=== PATIENT | female | born 1950 | race Caucasian/White ===

== ENCOUNTER 2016-12-16 01:11 | Emergency (ER) | payer OTHER ==
[~2016-12-16] VITALS: Ht 162.6 cm; Wt 80.5 kg
[2016-12-16 01:17] VITALS: Ht 162.6 cm; Wt 80.5 kg
[2016-12-16] MEDS ORDERED: SOD CHLORIDE 0.9% 500 ML IV STA (01:56)
[2016-12-16] MEDS ORDERED: ONDANSETRON 4 MG INJ IV STA (02:15)
[2016-12-16] MEDS ORDERED: morphine 4 MG/ML VIAL IV STA (02:15)
--- NOTE | 2016-12-16 02:33 | RADRPT ---
PROCEDURE: XR Chest. CLINICAL INDICATION: Pain. TECHNIQUE: Single frontal chest x-ray. COMPARISON: None. FINDINGS: The cardiomediastinal silhouette is unremarkable. There are atherosclerotic calcifications of the ao rtic knob. There is no congestive heart failure.. No focal infiltrate is seen. There is no pleural effusion. There is no pneumothorax. The osseous structures are unremarkable. IMPRESSION: 1. No active disease. RPTAT: HMVK .Deepak Xiong MD, Date Time Electronically viewed and signed by .Deepak Xiong MD, on 12/16/2016 02:33 .K/
[2016-12-16 02:43] LABS: ADD SCAN DIFF NO
[2016-12-16 02:45] LABS: BASOPHILS % 0.1 % (0.0-2.0); EOSINOPHILS # 0.1 10^3/ul (0.0-0.5); EOSINOPHILS % 1.4 % (0.0-7.0); HEMOGLOBIN 12.3 g/dl (12.0-16.0); LYMPHOCYTES # 1.5 10^3/ul (0.8-2.9); LYMPHOCYTES % 18.1 % (15.0-51.0); MEAN CORPUSCULAR HEMOGLOBIN 27.5 pg (29.0-33.0); MEAN CORPUSCULAR HGB CONC 33.2 g/dl (32.0-37.0); MEAN CORPUSCULAR VOLUME 82.6 fl (82.0-101.0); MEAN PLATELET VOLUME 10.1 fl (7.4-10.4); MONOCYTE # 0.7 10^3/ul (0.3-0.9); MONOCYTES % 8.5 % (0.0-11.0); NEUTROPHILS % 71.7 % (39.0-77.0); PLATELET COUNT 209 10^3/UL (140-415); RED BLOOD COUNT 4.48 10^6/ul (4.20-5.40); RED CELL DISTRIBUTION WIDTH 13.9 % (11.5-14.5); WHITE BLOOD COUNT 8.4 10^3/ul (4.8-10.8)
[2016-12-16 03:06] LABS: ALBUMIN 3.6 g/dl (3.3-4.9); CHLORIDE 104 mmol/L (97-110); POTASSIUM 4.1 mmol/L (3.5-5.1); SODIUM 139 mmol/L (135-144)
[2016-12-16 03:08] LABS: CREATININE 0.49 mg/dl (0.44-1.00)
[2016-12-16 03:09] LABS: ALANINE AMINOTRANSFERASE 47 IU/L (13-69); ALBUMIN/GLOBULIN RATIO 1.12; ALKALINE PHOSPHATASE 80 IU/L (42-121); ANION GAP 17 (8-16); ASPARTATE AMINO TRANSFERASE 41 IU/L (15-46); BILIRUBIN,INDIRECT 0.2 mg/dl (0-1.1); BILIRUBIN,TOTAL 0.2 mg/dl (0.2-1.3); BLOOD UREA NITROGEN 13 mg/dl (7-20); CALCIUM 8.2 mg/dl (8.4-10.2); CARBON DIOXIDE 22 mmol/L (21-31); GLUCOSE 164 mg/dl (70-220); TOTAL PROTEIN 6.8 g/dl (6.1-8.1)
--- NOTE | 2016-12-16 03:21 | ERD ---
ER Documentation Chief Complaint Date/Time DATE: 12/16/16 TIME: 03:19 Chief Complaint fever/abd pain/headahce/body aches x 3 days HPI This is a 66-year-old female comes in with a headache body aches cough and fever. Denies any nausea vomiting. Denies any other current complaints. Symptoms been on for 24-48 hours. No other current complaints. ROS All systems reviewed and are negative except as per history of present illness. Allergies Allergies: Coded Allergies: No Known Drug Allergies (Verified Allergy, Unknown, 12/16/16) PMhx/Soc Medical and Surgical Hx: pt denies Surgical Hx Hx Miscellaneous Medical Probl: Yes (dm) Hx Alcohol Use: No Hx Substance Use: No Hx Tobacco Use: No Smoking Status: Former smoker Physical Exam Vitals Vital Signs Date Time Temp Pulse Resp B/P Pulse Ox O2 Delivery O2 Flow Rate FiO2 12/16/16 01:17 99.2 96 20 132/79 98 Physical Exam Const: [] Head: Atraumatic Eyes: Normal Conjunctiva ENT: Normal External Ears, Nose and Mouth. Neck: Full range of motion..~ No meningismus. Resp: Clear to auscultation bilaterally Cardio: Regular rate and rhythm, no murmurs Abd: Soft, non tender, non distended. Normal bowel sounds Skin: No petechiae or rashes Back: No midline or flank tenderness Ext: No cyanosis, or edema Neur: Awake and alert Psych: Normal Mood and Affect Result Diagram: 12/16/16 0205 12/16/16 0205 Results 24 hrs Laboratory Tests Test 12/16/16 02:05 White Blood Count 8.410^3/ul Red Blood Count 4.4810^6/ul Hemoglobin 12.3g/dl Hematocrit 37.0% Mean Corpuscular Volume 82.6fl Mean Corpuscular Hemoglobin 27.5pg Mean Corpuscular Hemoglobin Concent 33.2g/dl Red Cell Distribution Width 13.9% Platelet Count 47999^3/UL Mean Platelet Volume 10.1fl Neutrophils % 71.7% Lymphocytes % 18.1% Monocytes % 8.5% Eosinophils % 1.4% Basophils % 0.1% Nucleated Red Blood Cells % 0.0/100WBC Neutrophils # 6.010^3/ul Lymphocytes # 1.510^3/ul Monocytes # 0.710^3/ul Eosinophils # 0.110^3/ul Basophils # 0.010^3/ul Nucleated Red Blood Cells # 0.010^3/ul Sodium Level 139mmol/L Potassium Level 4.1mmol/L Chloride Level 104mmol/L Carbon Dioxide Level 22mmol/L Anion Gap 17 Blood Urea Nitrogen 13mg/dl Creatinine 0.49mg/dl Glucose Level 164mg/dl Lactic Acid Level 1.4mmol/L Calcium Level 8.2mg/dl Total Bilirubin 0.2mg/dl Direct Bilirubin 0.00mg/dl Indirect Bilirubin 0.2mg/dl Aspartate Amino Transf (AST/SGOT) 41IU/L Alanine Aminotransferase (ALT/SGPT) 47IU/L Alkaline Phosphatase 80IU/L Troponin I Pending Total Protein 6.8g/dl Albumin 3.6g/dl Globulin 3.20g/dl Albumin/Globulin Ratio 1.12 Lipase 233U/L Current Medications Medications (Trade) Dose Ordered Sig/John Route PRN Reason Start Time Stop Time Status Last Admin Dose Admin Sodium Chloride (NS) 500 ml @ 500 mls/hr Q1H STAT IV 12/16/16 01:56 12/16/16 02:55 DC 12/16/16 02:24 Morphine Sulfate (morphine) 4 mg ONCE STAT IV 12/16/16 02:15 12/16/16 02:18 DC 12/16/16 02:24 Ondansetron HCl (Zofran Inj) 4 mg ONCE STAT IV 12/16/16 02:15 12/16/16 02:18 DC 12/16/16 02:24 Procedures/MDM EKG: Rate/Rhythm: [Normal Sinus Rhythm] QRS, ST, T-waves: [No changes consistent w/ acute ischemia] Impression: [No evidence of ischemia or arrhythmia] Chest X-ray 1V Interpreted by me: Soft Tissue: No acute abnormalities Bones: No acute abnormalities Mediastinum/Cardiac Silhouette/Lungs: [No acute abnormalities] Medical decision makin year female with a history of viral syndrome. At this point clinically stable for discharge home with prednisone, Motrin. Follow -up with PMD tomorrow. Return for worsening symptoms. Departure Diagnosis: Primary Impression: Viral syndrome Condition: Stable STANLEY GARY December 16, 2016 03:21
[2016-12-16] MEDS ORDERED: IBUP-1542 PO (03:22)
[2016-12-16] MEDS ORDERED: PRED20TA PO (03:22)
[2016-12-16] MEDS ORDERED: ALBU18HF INHALATION (03:26)
[2016-12-16 03:43] LABS: TROPONIN-I < 0.012 ng/ml (0.00-0.12)
[2016-12-16 04:18] LABS: INR 0.91; PROTIME 12.2 Sec (12.2-14.2)
[2016-12-16 04:19] LABS: PARTIAL THROMBOPLASTIN TIME 32.9 Sec (25.0-35.0)
[2016-12-16 04:24] VITALS: BP 116/59; PULSE 78; RESP 22; TEMP 99
== END 2016-12-16 04:33 | disposition home or self-care (01) ==
LOC: E/R 01:11
DX: B34.9 Viral infection, unspecified (principal); E11.9 Type 2 diabetes mellitus without complications; R07.9 Chest pain, unspecified; Z87.891 Personal history of nicotine dependence
CPT/HCPCS: 36415; 71010; 80053; 83605; 83690; 84484; 85025; 85610; 85730; 87040; 93005; 96361; 96374; 96375; J2270; J2405; J7040; Z7502; Z7610

== ENCOUNTER 2018-08-13 19:28 | Inpatient (IN) | payer OTHER ==
[~2018-08-13] VITALS: Ht 160 cm; Wt 70.5 kg
[~2018-08-13 19:28] MED LIST: ALBU18HF INHALATION; IBUP-1542 PO; PRED20TA PO
[2018-08-13] MEDS ORDERED: SOD CHLORIDE 0.9% 1,000 ML IV ONE (21:00)
[2018-08-13] MEDS ORDERED: CEFTRIAXONE 1 GM/50 ML (PMX) 50 ML IVPB ONE (21:00)
[2018-08-13] MEDS ORDERED: INSULIN REGULAR, HUMAN 100 UNIT/1 ML 3ML VIAL SC ONE (21:00)
--- NOTE | 2018-08-13 21:10 | ERD ---
ER Documentation Chief Complaint Chief Complaint bilateral flank pain x 1 week. HPI 67-year-old female presents the emergency department with her family for evaluation of bilateral flank pain for 1 week. Patient and family state that over the last week, she has had nonspecific fevers and chills with bilateral flank pain. She reports no dysuria or hematuria. She reports nausea with nonbilious, nonbloody emesis. Patient reports no diarrhea. ROS All systems reviewed and are negative except as per history of present illness. Medications Home Meds Active Scripts Albuterol Sulfate* (Ventolin HFA*) 18 Gm Hfa.aer.ad, 2 PUFF INHALATION Q4H, #1 INHALER Prov:STANLEY GARY S. 12/16/16 Prednisone* (Prednisone*) 20 Mg Tab, 40 MG PO DAILY for 4 Days, TAB Prov:STANLEY GARY 12/16/16 Ibuprofen* (Motrin*) 600 Mg Tab, 600 MG PO Q6, #30 TAB Prov:STANLEY GARY. 12/16/16 Allergies Allergies: Coded Allergies: No Known Drug Allergies (Verified Allergy, Unknown, 12/16/16) PMhx/Soc History of Surgery: No Hx Respiratory Disorders: No Hx Cardiac Disorders: No Hx Psychiatric Problems: No Hx Miscellaneous Medical Probl: Yes (previous UTI) Hx Alcohol Use: No Hx Substance Use: No Hx Tobacco Use: No Smoking Status: Never smoker FmHx Noncontributory for chief complaint Physical Exam Vitals Vital Signs Date Temp Pulse Resp B/P (MAP) Pulse Ox O2 O2 Flow FiO2 Time Delivery Rate 08/13/18 97.9 88 18 133/63 97 19:34 (86) Physical Exam GENERAL: The patient is well developed and appropriate for usual state of health in no apparent distress HEENT: Pupils equal, round, and reactive to light. EOMI. There is no scleral icterus. NECK: C-spine is soft and supple, there is no meningismus. There is no cervical lymphadenopathy. LUNGS: Clear to auscultation bilaterally. There are no rales, wheezes or rhonchi. HEART: Regular rate and rhythm, no murmurs, clicks, rubs or gallops. ABDOMEN: Soft, non-tender, non-distended. There are bowel sounds in all four quadrants. No rebound or guarding. Bilateral CVA tenderness EXTREMITIES: There is no peripheral cyanosis or edema. No focal swelling or erythema. NEURO: The patient moves all four extremities with 5/5 strength. Cranial nerves II - XII are intact. Normal gait. Alert and oriented SKIN: There is no apparent rash or petechiae. HEME/LYMPHATIC: There is no evidence of excessive bruising or lymphedema. PSYCHIATRIC: The patient does not appear anxious or depressed. Result Diagram: 08/13/18200308/13/18 2004 Results 24 hrs Laboratory Tests Test 08/13/18 20:04 White Blood Count 9.6 10^3/ul Red Blood Count 4.54 10^6/ul Hemoglobin 12.4 g/dl Hematocrit 37.6 % Mean Corpuscular Volume 82.8 fl Mean Corpuscular Hemoglobin 27.3 pg Mean Corpuscular Hemoglobin Concent 33.0 g/dl Red Cell Distribution Width 13.9 % Platelet Count 264 10^3/UL Mean Platelet Volume 9.7 fl Immature Granulocytes % 0.300 % Neutrophils % 75.2 % Lymphocytes % 18.8 % Monocytes % 4.3 % Eosinophils % 1.0 % Basophils % 0.4 % Nucleated Red Blood Cells % 0.0 /100WBC Immature Granulocytes # 0.030 10^3/ul Neutrophils # 7.2 10^3/ul Lymphocytes # 1.8 10^3/ul Monocytes # 0.4 10^3/ul Eosinophils # 0.1 10^3/ul Basophils # 0.0 10^3/ul Nucleated Red Blood Cells # 0.0 10^3/ul Urine Color YELLOW Urine Clarity CLEAR Urine pH 7.0 Urine Specific [place] 1.021 Urine Ketones NEGATIVE mg/dL Urine Nitrite NEGATIVE mg/dL Urine Bilirubin NEGATIVE mg/dL Urine Urobilinogen NEGATIVE mg/dL Urine Leukocyte Esterase 1+ Yo[place]/ul Urine Microscopic RBC 2 /HPF Urine Microscopic WBC 41 /HPF Urine Hemoglobin NEGATIVE mg/dL Urine Glucose 3+ mg/dL Urine Total Protein NEGATIVE mg/dl Sodium Level 132 mmol/L Potassium Level 4.4 mmol/L Chloride Level 100 mmol/L Carbon Dioxide Level 27 mmol/L Anion Gap 5 Blood Urea Nitrogen 13 mg/dl Creatinine 0.54 mg/dl Est Glomerular Filtrat Rate mL/min > 60 mL/min Glucose Level 473 mg/dl Calcium Level 9.5 mg/dl Total Bilirubin 0.2 mg/dl Direct Bilirubin 0.00 mg/dl Indirect Bilirubin 0.2 mg/dl Aspartate Amino Transf (AST/SGOT) 75 IU/L Alanine Aminotransferase (ALT/SGPT) 77 IU/L Alkaline Phosphatase 284 IU/L Total Protein 6.9 g/dl Albumin 3.7 g/dl Globulin 3.20 g/dl Albumin/Globulin Ratio 1.15 Lipase 121 U/L Current Medications Medications Dose Sig/John Start Time Status Last (Trade) Ordered Route PRN Stop Time Admin Dose Reason Admin Sodium 1,000 ml @ Q1H ONCE 08/13/18 Chloride 1,000 mls/hr IV 21:00 08/13/18 21:59 Ceftriaxone 50 ml @ ONCE ONCE 08/13/18 Sodium 100 mls/hr IVPB 21:00 08/13/18 21:29 Insulin 4 unit ONCE ONCE 08/13/18 DC Human SC 21:00 08/13/18 Regular 21:01 (Humulin R) Procedures/MDM Patient was taken to a room, seen and evaluated. Comfort measures were initiated. Diagnostic tests were ordered and reviewed. CONSULTATION: Hospitalist was notified for admission REEVALUATION: 2100: Diagnostic tests were appreciated and arrangements were made for admission to the hospital. In response the patient's tests, patient received fluids, antibiotics, insulin MEDICAL DECISION MAKIN-year-old female presents the emergency department with a pyelonephritis comp located by severe hyperglycemia and uncontrolled diabetes putting her at high risk. She does not appear to be septic at this time but will require admission to the hospital for fluids, antibiotics and sugar control. Departure Diagnosis: Primary Impression: Pyelonephritis Additional Impression: Diabetes mellitus with hyperglycemia Condition: EDUARDO Francisco Aug 13, 2018 21:10
[2018-08-13] MEDS ORDERED: METF500T24 PO (21:13)
[2018-08-13] MEDS ORDERED: LISI-313 PO (21:13)
[2018-08-13] MEDS ORDERED: ATOR20TA38 PO (21:13)
[2018-08-13] MEDS ORDERED: GABA400C14 PO (21:14)
[2018-08-13] MEDS ORDERED: OMEP20CA16 PO (21:14)
[2018-08-13] MEDS ORDERED: INSU100I33 SC (21:15)
[2018-08-13] MEDS ORDERED: HYDROmorphONE 1 MG/ML SYG IV STA (22:23)
[2018-08-13] MEDS ORDERED: ONDANSETRON 4 MG INJ IV STA (22:23)
[2018-08-13 23:29] VITALS: BP 136/79; PULSE 102; RESP 17
--- NOTE | 2018-08-13 23:48 | HP ---
Date/Time of Note Date/Time of Note DATE: 08/13/18 TIME: 23:48 Assessment/Plan VTE Prophylaxis Pharmacological prophylaxis: heparin Lines/Catheters IV Catheter Type (from Nrsg): Saline Lock Assessment/Plan Hospital Course Assessment/Plan 1. Sepsis, as evidenced by fever and tachycardia, secondary to UTI, with possible pyelonephritis -IV antibiotic, IV fluid -Obtain CT abdomen/pelvis to eval for kidney/ureteral stones -Follow-up blood culture and urine culture results 2. Insulin-dependent type 2 diabetes with hyperglycemia: No sign of DKA -Check A1c. Adjust insulin as needed 3. Hypertension: BP within goal. Continue home meds 4. Abnormal LFTs: will follow-up the CT abdomen/pelvis (see #1) Hold Lipitor for now Hep panel 5. History of asthma: No sign of acute exacerbation Result Diagram: 08/13/18200308/13/182003 Results 24hrs Laboratory Tests Test 08/13/18 20:04 White Blood Count 9.6 Red Blood Count 4.54 Hemoglobin 12.4 Hematocrit 37.6 Mean Corpuscular Volume 82.8 Mean Corpuscular Hemoglobin 27.3 L Mean Corpuscular Hemoglobin Concent 33.0 Red Cell Distribution Width 13.9 Platelet Count 264 # Mean Platelet Volume 9.7 Immature Granulocytes % 0.300 Neutrophils % 75.2 Lymphocytes % 18.8 Monocytes % 4.3 Eosinophils % 1.0 Basophils % 0.4 Nucleated Red Blood Cells % 0.0 Immature Granulocytes # 0.030 Neutrophils # 7.2 Lymphocytes # 1.8 Monocytes # 0.4 Eosinophils # 0.1 Basophils # 0.0 Nucleated Red Blood Cells # 0.0 Urine Color YELLOW Urine Clarity CLEAR Urine pH 7.0 Urine Specific [place] 1.021 Urine Ketones NEGATIVE Urine Nitrite NEGATIVE Urine Bilirubin NEGATIVE Urine Urobilinogen NEGATIVE Urine Leukocyte Esterase 1+ H Urine Microscopic RBC 2 Urine Microscopic WBC 41 H Urine Hemoglobin NEGATIVE Urine Glucose 3+ H Urine Total Protein NEGATIVE Sodium Level 132 L Potassium Level 4.4 Chloride Level 100 Carbon Dioxide Level 27 Anion Gap 5 Blood Urea Nitrogen 13 Creatinine 0.54 Est Glomerular Filtrat Rate mL/min > 60 Glucose Level 473 *H Calcium Level 9.5 Total Bilirubin 0.2 Direct Bilirubin 0.00 Indirect Bilirubin 0.2 Aspartate Amino Transf (AST/SGOT) 75 H Alanine Aminotransferase (ALT/SGPT) 77 H Alkaline Phosphatase 284 H Total Protein 6.9 Albumin 3.7 Globulin 3.20 Albumin/Globulin Ratio 1.15 Lipase 121 HPI/ROS Admit Date/Time Admit Date/Time Aug 13, 2018 at 21:11 Hx of Present Illness This is a 67-year-old female with a history of hypertension, type 2 diabetes (insulin-dependent), asthma who presented to ER complaining of right flank pain x 3 days. In the ER, temp was as high as 100.4. Initial WBC less than 10. UA consistent with UTI. Initial blood glucose 473 without any sign of DKA. PMH/Family/Social Past Medical History Medical History: other (See HPI) Medications Current Medications IV Flush (NS 3 ml) 3 ml PER PROTOCOL IV ; Start 08/14/18 at 00:00; Status UNV Ondansetron HCl (Zofran Inj) 4 mg Q6H PRN IV NAUSEA AND/OR VOMITING; Start at 00:00; Status UNV Acetaminophen (Tylenol Tab) 650 mg Q6H PRN PO PAIN LEVEL 1-3 OR FEVER; Start 08/14/18 at 00:00; Status UNV Acetaminophen/ Hydrocodone Bitart ([place] (5/325)) 1 tab Q6H PRN PO MODERATE PAIN LEVEL 4-6; Start 08/14/18 at 00:00; Status UNV Acetaminophen/ Hydrocodone Bitart ([place] (5/325)) 2 tab Q6H PRN PO SEVERE PAIN LEVEL 7-10; Start 08/14/18 at 00:00; Status UNV Enoxaparin Sodium (Lovenox) 40 mg DAILY SC ; Start 08/14/18 at 09:00; Status UNV Albuterol/ Ipratropium (Duoneb) 3 ml Q2H RESP THERAPY PRN HHN SHORTNESS OF BREATH; Start 08/14/18 at 00:00; Status UNV Coded Allergies: No Known Drug Allergies (Verified Allergy, Unknown, 08/13/18) Past Surgical History Past Surgical Hx: other (See HPI) Family History Significant Family History: no pertinent family hx Social History Alcohol Use: none Smoking Status: Never smoker Drug Use: none Exam/Review of Systems Vital Signs Vitals Vital Signs Date Temp Pulse Resp B/P (MAP) Pulse Ox O2 O2 Flow FiO2 Time Delivery Rate 08/13/18 100.4 102 17 136/79 96 23:29 (98) 08/13/18 Room Air 22:57 Exam Constitutional: alert, oriented, well developed Head: normocephalic, atraumatic Eyes: EOMI, PERRL Respiratory: clear to auscultation, normal air movement Cardiovascular: other (Tachycardic regular rhythm) Gastrointestinal: tender (right flank slightly tender) Extremities: normal pulses STANLEY PINA MD Aug 13, 2018 23:48
[2018-08-14] MEDS ORDERED: NACL 0.9% 3 ML SYG IV SCH
[2018-08-14] MEDS ORDERED: ALBUTEROL/IPRATROPIUM (NEB) 3 ML AMP HHN PRN
[2018-08-14] MEDS ORDERED: ONDANSETRON 4 MG INJ IV PRN
[2018-08-14] MEDS ORDERED: ACETAMINOPHEN 325 MG TAB PO PRN
[2018-08-14] MEDS ORDERED: HYDROCODONE/APAP (5/325) TAB PO PRN
[2018-08-14 00:29] VITALS: Ht 160 cm; Wt 70.5 kg
[2018-08-14] MEDS ORDERED: GLUCAGON 1 MG INJ IM PRN (00:30)
[2018-08-14] MEDS ORDERED: GLUCOSE GEL 15 GRAM TUBE PO PRN ×2 (00:30)
[2018-08-14] MEDS ORDERED: DEXTROSE 50% 50 ML SYRINGE IV PRN ×2 (00:30)
[2018-08-14] MEDS ORDERED: GLUCOSE GEL 15 GRAM TUBE BUCCAL PRN (00:30)
[2018-08-14] MEDS: INSULIN GLARGINE [LANtus] 3 ML PEN SC SCH ×2 (01:06→21:37)
[2018-08-14] MEDS: HYDROCODONE/APAP (5/325) TAB PO PRN ×2 (01:15→20:49)
[2018-08-14] MEDS: ACCU-CHEK XX SCH (01:51)
[2018-08-14] MEDS ORDERED: INSULIN ASPART [NOVOLOG] 3 ML PEN SC ONE (02:00)
[2018-08-14 02:10] VITALS: BP 107/55; PULSE 97; RESP 18
[2018-08-14] MEDS: metFORMIN 500 MG TAB PO SCH ×2 (08:01→17:33)
[2018-08-14] MEDS: INSULIN ASPART [NOVOLOG] 3 ML PEN SC SCH ×5 (08:04→20:43)
[2018-08-14] MEDS: GABAPENTIN 400 MG CAP PO SCH ×3 (08:05→20:44)
[2018-08-14] MEDS: ENOXAPARIN 40 MG/0.4 ML SYG SC SCH (08:05)
[2018-08-14 08:07] VITALS: BP 101/51; PULSE 77; RESP 18
[2018-08-14] MEDS: LISINOPRIL 5 MG TAB PO SCH (08:09)
[2018-08-14 14:45] VITALS: BP 89/53; PULSE 63; RESP 18
--- NOTE | 2018-08-14 16:27 | PN ---
Date/Time of Note Date/Time of Note DATE: 08/14/18 TIME: 16:24 Assessment/Plan VTE Prophylaxis Risk score (from Ns)>0 risk: 3 SCD applied (from Ns): No SCD contraindicated: other Pharmacological prophylaxis: LMWH Lines/Catheters IV [facility]from [facility] Saline Lock Assessment/Plan Hospital Course S: Patient had no fevers overnight. Having some low blood pressure today however. O: VS - see below: PE: GENERAL: Lying in bed, no acute distress HEENT: Pupils equal, round, and reactive to light. EOMI. There is no scleral icterus. NECK: Supple LUNGS: Clear to auscultation bilaterally. There are no rales, wheezes or rhonchi. HEART: Regular rate and rhythm, no murmurs, clicks, rubs or gallops. ABDOMEN: Soft, non-tender, non-distended. There are bowel sounds in all four quadrants. No rebound or guarding. + Bilateral CVA tenderness EXTREMITIES: No lower extremity edema bilaterally NEURO: No focal deficits Assessment/Plan: 67-year-old female who presents with: 1. Sepsis- as evidenced by fever and tachycardia, secondary to UTI, with possible pyelonephritis. Fevers are subsiding now. Urine culture shows preliminary greater than 100,000 gram-negative rods -Continue IV antibiotic, IV fluid -Results noted of CT abdomen/pelvis to eval for kidney/ureteral stones -Follow-up final results of blood culture and urine culture 2. Insulin-dependent type 2 diabetes with hyperglycemia: Sugars improved since admission but still in the high 100 to low 200 range. A1c was 13.8. -Continue metformin, add aspart with meals, continue Lantus -Continue sliding scale 3. Hypertension: BP within goal. -Continue home meds 4. History of asthma: No sign of acute exacerbation -Monitor, DuoNeb's as needed Result Diagram: 08/14/18 0508/14/1829 Results 24hrs Laboratory Tests Test 08/13/18 20:04 08/14/18 01:04 08/14/18 01:47 08/14/18 05:29 White Blood Count 9.6 10.9 H Red Blood Count 4.54 4.20 Hemoglobin 12.4 11.7 L Hematocrit 37.6 34.8 L Mean Corpuscular Volume 82.8 82.9 Mean Corpuscular 27.3 L 27.9 L Hemoglobin Mean Corpuscular 33.0 33.6 Hemoglobin Concent Red Cell Distribution 13.9 14.2 Width Platelet Count 264 # 241 Mean Platelet Volume 9.7 9.8 Immature Granulocytes % 0.300 0.400 Neutrophils % 75.2 65.4 Lymphocytes % 18.8 23.2 Monocytes % 4.3 9.8 Eosinophils % 1.0 0.9 Basophils % 0.4 0.3 Nucleated Red Blood 0.0 0.0 Cells % Immature Granulocytes # 0.030 0.040 H Neutrophils # 7.2 7.1 Lymphocytes # 1.8 2.5 Monocytes # 0.4 1.1 H Eosinophils # 0.1 0.1 Basophils # 0.0 0.0 Nucleated Red Blood 0.0 0.0 Cells # Urine Color YELLOW Urine Clarity CLEAR Urine pH 7.0 Urine Specific [place] 1.021 Urine Ketones NEGATIVE Urine Nitrite NEGATIVE Urine Bilirubin NEGATIVE Urine Urobilinogen NEGATIVE Urine Leukocyte Esterase 1+ H Urine Microscopic RBC 2 Urine Microscopic WBC 41 H Urine Hemoglobin NEGATIVE Urine Glucose 3+ H Urine Total Protein NEGATIVE Sodium Level 132 L 140 Potassium Level 4.4 4.1 Chloride Level 100 101 Carbon Dioxide Level 27 32 H Anion Gap 5 7 Blood Urea Nitrogen 13 11 Creatinine 0.54 0.57 Est Glomerular Filtrat > 60 > 60 Rate mL/min Glucose Level 473 *H 195 # Calcium Level 9.5 9.1 Total Bilirubin 0.2 0.3 Direct Bilirubin 0.00 0.00 Indirect Bilirubin 0.2 0.3 Aspartate Amino 75 H 41 Transf (AST/SGOT) Alanine 77 H 58 Aminotransferase (ALT/SG PT) Alkaline Phosphatase 284 H 195 H Total Protein 6.9 6.5 Albumin 3.7 3.3 Globulin 3.20 3.20 Albumin/Globulin Ratio 1.15 1.03 Lipase 121 Bedside Glucose 304 H 317 H Hemoglobin A1c 13.8 H Phosphorus Level 4.8 Magnesium Level 1.7 Test 08/14/18 07:59 08/14/18 12:25 Bedside Glucose 220 158 Exam/Review of Systems Vital Signs Vitals Vital Signs Date Temp Pulse Resp B/P (MAP) Pulse Ox O2 O2 Flow FiO2 Time Delivery Rate 08/14/18 97.3 63 18 89/53 (65) 92 14:45 08/13/18 Room Air 22:57 Medications Medications Current Medications IV Flush (NS 3 ml) 3 ml PER PROTOCOL IV ; Start 08/14/18 at 00:00 Ondansetron HCl (Zofran Inj) 4 mg Q6H PRN IV NAUSEA AND/OR VOMITING; Start 08/14/18 at 00:00 Acetaminophen (Tylenol Tab) 650 mg Q6H PRN PO PAIN LEVEL 1-3 OR FEVER Last administered on 08/14/18 11:02; Admin Dose 650 MG; Start 08/14/18 at 00:00 Acetaminophen/ Hydrocodone Bitart ([place] (5/325)) 1 tab Q6H PRN PO MODERATE PAIN LEVEL 4-6 Last administered on 08/14/18 01:15; Admin Dose 1 TAB; Start 08/14/18 at 00:00 Acetaminophen/ Hydrocodone Bitart ([place] (5/325)) 2 tab Q6H PRN PO SEVERE PAIN LEVEL 7-10; Start 08/14/18 at 00:00 Enoxaparin Sodium (Lovenox) 40 mg DAILY SC Last administered on 08/14/18 08:05; Admin Dose 40 MG; Start 08/14/18 at 09:00 Albuterol/ Ipratropium (Duoneb) 3 ml Q2H RESP THERAPY PRN HHN SHORTNESS OF BREATH; Start 08/14/18 at 00:00 Gabapentin (Neurontin) 400 mg TID PO Last administered on 08/14/18 12:25; Admin Dose 400 MG; Start 08/14/18 at 09:00 Insulin Glargine (Lantus) 15 unit QHS SC Last administered on 08/14/18 01:06; Admin Dose 15 UNIT; Start 08/14/18 at 01:00 Lisinopril (Zestril) 5 mg DAILY PO Last administered on 08/14/18 08:09; Admin Dose 5 MG; Start 08/14/18 at 09:00 Metformin HCl (Glucophage) 500 mg WITH BREAKFAST DINNE PO Last administered on 08/14/18 08:01; Admin Dose 500 MG; Start 08/14/18 at 08:00 Diagnostic Test (Pha) (Accu-Chek) 1 ea 02 XX Last administered on 08/14/18at 01:51; Admin Dose 1 EA; Start 08/14/18 at 02:00 Insulin Aspart (Novolog Insulin Pen) NOVOLOG *MODERATE* ALGORITHM WITH MEALS BEDTIME SC Last administered on 08/14/18at 12:27; Admin Dose 2 UNIT; Start 08/14/18 at 08:00 Miscellaneous Information 1 ea NOTE XX ; Start 08/14/18 at 00:30 Glucose (Glutose) 15 gm Q15M PRN PO DECREASED GLUCOSE; Start 08/14/18 at 00:30 Glucose (Glutose) 22.5 gm Q15M PRN PO DECREASED GLUCOSE; Start 08/14/18 at 00:30 Dextrose (D50w Syringe) 25 ml Q15M PRN IV DECREASED GLUCOSE; Start 08/14/18 at 00:30 Dextrose (D50w Syringe) 50 ml Q15M PRN IV DECREASED GLUCOSE; Start 08/14/18 at 00:30 Glucagon (Glucagen) 1 mg Q15M PRN IM DECREASED GLUCOSE; Start 08/14/18 at 00:30 Glucose (Glutose) 15 gm Q15M PRN BUCCAL DECREASED GLUCOSE; Start 08/14/18 at 00:30 Ceftriaxone Sodium 50 ml @ 100 mls/hr Q24H IVPB ; Start 08/14/18 at 21:00 DAVID WESTFALL Aug 14, 2018 16:27
[2018-08-14] MEDS ORDERED: SOD CHLORIDE 0.9% 250 ML IV ONE (16:30)
[2018-08-14] MEDS: SOD CHLORIDE 0.9% 1,000 ML IV SCH (17:33)
[2018-08-14 20:00] VITALS: BP 98/56; PULSE 72; RESP 18
[2018-08-14] MEDS ORDERED: CEFTRIAXONE 1 GM/50 ML (PMX) 50 ML IVPB SCH (21:00)
[2018-08-14] MEDS ORDERED: ATORVASTATIN 20 MG TAB PO SCH (21:00)
[2018-08-15 01:30] VITALS: BP 96/52; PULSE 69; RESP 18
[2018-08-15] MEDS: ACCU-CHEK XX SCH (02:00)
[2018-08-15] MEDS ORDERED: ACCU-CHEK XX SCH (02:00)
[2018-08-15] MEDS: SOD CHLORIDE 0.9% 1,000 ML IV SCH ×2 (03:20→14:07)
[2018-08-15 05:24] VITALS: BP 137/62; PULSE 78
[2018-08-15] MEDS: metFORMIN 500 MG TAB PO SCH ×2 (07:57→17:19)
[2018-08-15] MEDS: GABAPENTIN 400 MG CAP PO SCH ×2 (07:58→12:25)
[2018-08-15] MEDS: INSULIN ASPART [NOVOLOG] 3 ML PEN SC SCH ×6 (08:01→17:21)
[2018-08-15] MEDS: ENOXAPARIN 40 MG/0.4 ML SYG SC SCH (08:06)
[2018-08-15] MEDS: LISINOPRIL 5 MG TAB PO SCH (08:08)
[2018-08-15 08:14] VITALS: BP 108/57; PULSE 61; RESP 17
--- NOTE | 2018-08-15 13:27 | PDOCDIS ---
Discharge Instructions CONDITION [id number] Patient Condition: [id number] Stable HOME CARE INSTRUCTIONS: [id number] Special Diet: [id number] [facility] ACTIVITY: [id number] Activity Restrictions: [id number] Slowly Increase Activity Rest between Activity Avoid heavy lifting FOLLOW UP/APPOINTMENTS Follow-up Plan Please take your medications as prescribed. Please see your doctor in the clinic in the next 1 week. DAVID WESTFALL Aug 15, 2018 13:27
[2018-08-15] MEDS ORDERED: HYDR-3601 PO (13:29)
[2018-08-15] MEDS ORDERED: LEVO750T25 PO (13:29)
--- NOTE | 2018-08-15 13:31 | DS ---
Date/Time of Note Date/Time of Note DATE: 08/15/18 TIME: 13:29 Discharge Summary Admission/Discharge Info Admit Date/Time Aug 13, 2018 at 21:11 Discharge Date/Time Discharge Diagnosis 1. Sepsis- as evidenced by fever and tachycardia, secondary to UTI, with possi ble pyelonephritis-resolving now, urine culture positive for E. coli improving with antibiotics 2. Insulin-dependent type 2 diabetes with hyperglycemia: Sugars improved , A1c 13.8 3. Hypertension: BP within goal. 4. History of asthma Patient Condition: Stable Hx of Present Illness 67-year-old female with a history of hypertension, type 2 diabetes (insulin- dependent), asthma who presented to ER complaining of right flank pain x 3 days. In the ER, temp was as high as 100.4. Initial WBC less than 10. UA consistent with UTI. Initial blood glucose 473 without any sign of DKA. Hospital Course So patient was admitted. Her A1c is found to be 13.8 and she had adjustments made to her insulins which improved her sugars overall during her hospital stay. Regarding her sepsis which was secondary to UTI and mild pyelonephritis, this improved with pain control medications, IV fluids, and antibiotics. Her urine culture was positive for E. coli greater than 100,000 colony-forming units. Eventually she was able to ambulate and tolerate p.o. diet. No fevers during her hospital stay. White blood cell count trended down to normal ranges as well. She will be discharged home today in improved condition but will need antibiotics for another 7 days. See below for full list of discharge medications. Home Meds Active Scripts Levofloxacin* (Levaquin*) 750 Mg Tablet, 750 MG PO DAILY for 7 Days, TAB Prov:DAVID WESTFALL S. 08/15/18 Reported Medications Insulin Glargine,Hum.rec.anlog (Basaglar Kwikpen U-100) 100 Unit/1 Ml Insuln.pen, 10 UNIT SC QHS, EA 08/13/18 Gabapentin* (Gabapentin*) 400 Mg Capsule, 400 MG PO TID, #90 CAP 08/13/18 Omeprazole* (Omeprazole*) 20 Mg Capsule.dr, 20 MG PO DAILY, #30 CAP 08/13/18 Atorvastatin Calcium* (Atorvastatin Calcium*) 20 Mg Tablet, 20 MG PO QHS, #30 TAB 08/13/18 Metformin Hcl* (Metformin Hcl*) 500 Mg Tablet, 500 MG PO WITH BREAKFAST DINNE, #60 TAB 08/13/18 Lisinopril* (Lisinopril*) 5 Mg Tablet, 5 MG PO DAILY, #30 TAB 08/13/18 Discontinued Scripts Albuterol Sulfate* (Ventolin HFA*) 18 Gm Hfa.aer.ad, 2 PUFF INHALATION Q4H, #1 INHALER Prov:COOKIESTANLEY Anaya. 12/16/16 Prednisone* (Prednisone*) 20 Mg Tab, 40 MG PO DAILY for 4 Days, TAB Prov:JESNFRANCINESTANLEY S. 12/16/16 Ibuprofen* (Motrin*) 600 Mg Tab, 600 MG PO Q6, #30 TAB Prov:JENSFRANCINESTANLEY S. 12/16/16 Follow-up Plan Please take your medications as prescribed. Please see your doctor in the clinic in the next 1 week. Primary Care Provider [facility] Time spent on discharge: > 30 minutes Pending Labs Laboratory Tests Test 08/14/18 16:19 08/14/18 17:30 08/14/18 20:38 08/14/18 21:36 Bedside 220 234 103 121 Glucose mg/dL (70-220) mg/dL (70-220) mg/dL (70-220) mg/dL (70-220) Test 08/15/18 05:00 08/15/18 07:54 08/15/18 12:16 White Blood 8.0 Count 10^3/ul (4.8-10 .8) Red Blood 4.19 Count 10^6/ul (4.20-5 .40) Hemoglobin 11.5 g/dl (12.0-16.0 ) Hematocrit 35.3 % (37.0-47.0) Mean 84.2 Corpuscular fl (82.0-101.0) Volume Mean 27.4 Corpuscular pg (29.0-33.0) Hemoglobin Mean 32.6 Corpuscular g/dl (32.0-37.0 Hemoglobin Conc ) ent Red Cell 14.3 Distribution % (11.5-14.5) Width Platelet Count 263 10^3/UL (140-41 5) Mean Platelet 10.2 Volume fl (7.4-10.4) Immature 0.600 Granulocytes % % (0.001-0.429) Neutrophils % 58.2 % (39.0-77.0) Lymphocytes % 27.7 % (15.0-51.0) Monocytes % 10.1 % (0.0-11.0) Eosinophils % 3.2 % (0.0-7.0) Basophils % 0.2 % (0.0-2.0) Nucleated Red 0.0 Blood Cells % /100WBC (0.0-0. 0) Immature 0.050 Granulocytes # 10^3/ul (0.0-0. 031) Neutrophils # 4.7 10^3/ul (1.6-7. 5) Lymphocytes # 2.2 10^3/ul (0.8-2. 9) Monocytes # 0.8 10^3/ul (0.3-0. 9) Eosinophils # 0.3 10^3/ul (0.0-0. 5) Basophils # 0.0 10^3/ul (0.0-0. 1) Nucleated Red 0.0 Blood Cells # 10^3/ul (0.0-0. 0) Sodium Level 140 mmol/L (135-144 ) Potassium 3.8 Level mmol/L (3.5-5.1 ) Chloride Level 108 mmol/L (97-110) Carbon Dioxide 25 Level mmol/L (21-31) Anion Gap 7 (5-13) Blood Urea 15 mg/dl (7-20) Nitrogen Creatinine 0.62 mg/dl (0.44-1.0 0) Est Glomerular > 60 Filtrat mL/min (>60) Rate mL/min Glucose Level 166 mg/dl (70-220) Calcium Level 8.6 mg/dl (8.4-10.2 ) Phosphorus 4.8 Level mg/dl (2.5-4.9) Magnesium 1.7 Level mg/dl (1.7-2.5) Hepatitis B NEGATIVE (NEGAT Surface AMIRA) Antigen Hepatitis B NEGATIVE (NEGAT Surface AMIRA) Antibody Hepatitis C NEGATIVE (NEGAT Antibody AMIRA) Bedside 147 179 Glucose mg/dL (70-220) mg/dL (70-220) DAVID WESTFALL Aug 15, 2018 13:31
[2018-08-15 14:00] VITALS: BP 111/55; PULSE 81; RESP 18
== END 2018-08-15 17:58 | disposition home or self-care (01) | DRG 872 ==
LOC: E/R 19:28 → PP2 21:11
PROVIDERS: ADMIT Internal Medicine; ATTEND Hospitalist
DX: A41.9 Sepsis, unspecified organism (principal); N12 Tubulo-interstitial nephritis, not specified as acute or chronic; E11.65 Type 2 diabetes mellitus with hyperglycemia; I10 Essential (primary) hypertension; J45.909 Unspecified asthma, uncomplicated; B96.20 Unspecified Escherichia coli [E. coli] as the cause of diseases classified elsewhere; Z79.4 Long term (current) use of insulin
CPT/HCPCS: 36415; 74176; 80048; 80053; 81001; 82962; 83036; 83690; 83735; 84100; 85025; 86706; 86803; 87086; 87340; J0696; J1170; J1650; J1815; J2405; J7030; J7040

== ENCOUNTER 2019-03-20 19:54 | Emergency (ER) | payer OTHER ==
[~2019-03-20] VITALS: Ht 160 cm; Wt 170.0 kg
[~2019-03-20 19:54] MED LIST changes: -ALBU18HF INHALATION; +ATOR20TA38 PO; +GABA400C14 PO; +HYDR-3601 PO; +HYDR-4011 PO; +INSU100I33 SC; +LEVO750T25 PO; +LISI-313 PO; +METF500T24 PO; +OMEP20CA16 PO; -PRED20TA PO
[2019-03-20 19:56] VITALS: Ht 160 cm; Wt 170.0 kg
[2019-03-20 22:21] VITALS: BP 135/68; PULSE 77; RESP 16
== END 2019-03-20 22:22 | disposition home or self-care (01) ==
LOC: FTE 19:54
DX: S82.844A Nondisplaced bimalleolar fracture of right lower leg, initial encounter for closed fracture (principal); E11.9 Type 2 diabetes mellitus without complications; W01.0XXA Fall on same level from slipping, tripping and stumbling without subsequent striking against object, initial encounter; Y92.9 Unspecified place or not applicable; Z79.4 Long term (current) use of insulin
CPT/HCPCS: 29515; 73590; 73610; Z7610